=== PATIENT | female | born 1995 | race Asian ===

== ENCOUNTER 2020-11-19 19:33 | Emergency (ER) | payer SELFPAY ==
[~2020-11-19] VITALS: Ht 162.6 cm; Wt 71.2 kg
[2020-11-19 19:35] VITALS: BP 129/67
== END 2020-11-19 21:30 | disposition left against medical advice (07) ==
LOC: M ED 19:33
DX: Z53.21 Procedure and treatment not carried out due to patient leaving prior to being seen by health care provider (principal)

== ENCOUNTER 2021-03-16 13:26 | Emergency (ER) | payer OTHER ==
[~2021-03-16] VITALS: Ht 165.1 cm; Wt 70.0 kg
[2021-03-16 14:58] VITALS: O2SAT 97
[2021-03-16 16:24] VITALS: BP 127/74
== END 2021-03-16 16:27 | disposition home or self-care (01) ==
LOC: M ED 13:26
DX: H92.03 Otalgia, bilateral (principal); J06.9 Acute upper respiratory infection, unspecified

== ENCOUNTER 2022-11-29 11:37 | Emergency (ER) | payer OTHER ==
[~2022-11-29] VITALS: Ht 162.6 cm; Wt 62.7 kg
[2022-11-29 11:45] VITALS: BP 138/76
== END 2022-11-29 15:17 | disposition home or self-care (01) ==
LOC: M ED 11:37 → EDBD 11:37 → M ED 15:17
DX: T78.40XA Allergy, unspecified, initial encounter (principal); Z91.09 Other allergy status, other than to drugs and biological substances
CPT/HCPCS: 96374; 99284; J1100

== ENCOUNTER → 2023-03-13 | Outpatient (CLI) | payer OTHER ==
[2023-03-13 18:05] LABS: BASO % 0.5 % (0.0-1.0); EOS # 0.2 10^3/uL (0.0-0.5); EOS % 3.4 % (0.0-3.0); HEMATOCRIT 32.3 % (36.0-47.0); HEMOGLOBIN 10.9 g/dl (12.0-15.5); LYMPH # 2.4 10^3/uL (1.5-5.0); LYMPH % 42.8 % (24.0-44.0); MEAN CORPUSCULAR HEMOGLOBIN 30.7 pg (27.0-33.0); MEAN CORPUSCULAR HGB CONC 33.7 g/dl (32.0-36.5); MONO # 0.5 10^3/uL (0.0-0.8); MONO % 9.1 % (2.0-8.0); NEUTROPHILS # 2.5 10^3/uL (1.5-8.5); PLATELET COUNT, AUTOMATED 269 10^3/uL (150-450); RED BLOOD COUNT 3.55 10^6/uL (4.00-5.40); WHITE BLOOD COUNT 5.6 10^3/uL (4.0-10.0)
[2023-03-13 18:25] LABS: ALBUMIN 4.1 G/DL (3.2-5.2); ALKALINE PHOSPHATASE 40 U/L (46-116); ALT/SGPT 9 U/L (7.0-40); AST/SGOT 16 U/L (<34); BILIRUBIN,TOTAL 0.7 MG/DL (0.3-1.2); BLOOD UREA NITROGEN 11 MG/DL (9-23); CALCIUM LEVEL 8.6 MG/DL (8.5-10.1); CARBON DIOXIDE LEVEL 26 MMOL/L (20-31); CHLORIDE LEVEL 103 MMOL/L (98-107); CREATININE FOR GFR 0.55 MG/DL (0.55-1.30); GLOMERULAR FILTRATION RATE > 60.0 (>60); GLUCOSE, FASTING 104 MG/DL (60-100); POTASSIUM SERUM 3.8 MMOL/L (3.5-5.1); SODIUM LEVEL 138 MMOL/L (136-145); TOTAL PROTEIN 6.9 G/DL (5.7-8.2)
[2023-03-13 18:26] LABS: COMPLEMENT C3 97.1 MG/DL (84.0-160.0); COMPLEMENT C4 17.5 MG/DL (12-36); RHEUMATOID FACTOR QUANT 5.2 IU/ML (<14); THYROID STIMULATING HORMONE 2.134 uIU/ML (0.55-4.78); THYROXINE (T4) 10.8 UG/DL (4.5-10.9); TOTAL T3 114.7 NG/DL (60.0-181.0)
[2023-03-13 18:29] LABS: THYROGLOBULIN ANTIBODY < 15.0 U/ML (<60.0); THYROID PEROXIDASE ANTIBODY < 28.0 U/ML (<60.0)
[2023-03-13 18:37] LABS: ERYTHROCYTE SEDIMENTATION RATE 11 mm/hr (0-20)
== END ==
LOC: M LAB 16:33
PROVIDERS: ATTEND Allergy & Immunology Allergy
DX: L50.1 Idiopathic urticaria (principal)